=== PATIENT | female | born 1970 | race Caucasian/White ===

== ENCOUNTER 2023-06-15 10:50 | Emergency (ER) | payer BC, SELFPAY ==
[2023-06-15 11:01] VITALS: BP 133/76
--- NOTE | 2023-06-15 12:02 | ED.GENMED ---
History of Present Illness
<KENYON Fay - Last Filed: 06/15/23 16:13>
General
Chief Complaint: Back Pain
Source: patient
Exam Limitations: none
Time Seen by Provider: 06/15/23 11:35
Nursing documentation reviewed up to this point in time: agreed with
Travel History
Have you had any contact with someone who has COVID-19?: No
Do you have any symptoms of coronavirus? Fever > 100 degrees, chills, cough, shortness of breath, sore throat, loss of taste or smell, muscle aches, or headache?: No
History of Present Illness
History of Present Illness:
53-year-old female presents to the ER complaining of left back that radiates to her left chest she reports this started on Saturday however has gotten progressively worse. She slept on a different side and when she woke up noticed discomfort. She
reports pain has gotten worse since she first noticed this several days ago. She complains of increased pain with taking a deep breath. She denies any recent illness fever chills cough. She denies any rash. She has been taking ibuprofen also
took Flexeril at home which she believes may have without relief. She was seen in urgent care and sent here to rule out PE.
She has no prior history of DVT PE. There is no family history of clotting disorder. She is not a smoker. She is not on any oral contraceptives or estrogens. She denies any recent orthopedic issue, no recent travel. She does admit to a
sedentary job.
No cardiac disease
Review of Systems
<KENYON Fay - Last Filed: 06/15/23 16:13>
Review of Systems
Allergies reviewed?: Yes
All Other Systems: ROS reviewed and negative except as documented in HPI and ROS
Constitutional: Reports no symptoms; Denies fever, fatigue or chills
EENT: Reports no symptoms
Respiratory: Reports other (pain with deep breath )
Cardiac: Reports chest pain (left back pain radiates to left chest )
ABD/GI: Reports no symptoms
Musculoskeletal: Reports back pain (Left-sided back pain rating to chest)
Skin: Reports no symptoms
Neurological: Reports no symptoms
Psychiatric: Reports no symptoms
Phy Exam
<KENYON Fay - Last Filed: 06/15/23 16:13>
General Physical Exam
General Presentation: no apparent distress
General age: appears stated age
General Skin: warm and dry
General Habitus: normal
General Mental: alert
General Hydration: appears well hydrated
Cardiovascular Exam
Cardiovascular Exam: regular rate/rhythm, no murmur and normal peripheral pulses
Pulmonary Exam
Pulmonary Exam: lungs clear and no respiratory distress
Gastrointestinal Exam
Gastrointestinal Exam: normal bowel sounds, non tender and soft
Neurological Exam
Neurological Exam: alert and oriented x3
Musculoskeletal Exam
Musculoskeletal Exam: full ROM and other (Patient feels better when standing up laying back seems to worsen left back pain)
Skin Exam
Skin Exam: normal color and warm/dry
Psychiatric Exam
Psychiatric Exam: normal mood/affect
Course
<KENYON Fay - Last Filed: 06/15/23 16:13>
Orders/Labs/Results
Orders:
Orders
06/15/23 11:22
EKG [Electrocardiogram (*1)] Stat
Reason for Study: Chest Pain
06/15/23 11:23
EKG- Treatment ONCE
06/15/23 12:02
IV Insert/Care/Rem.- Treatment PRN
0.9% Sodium Chloride 1000 ml [Nss] 1,000 ml IV BOLUS
06/15/23 12:03
Cardiac Monitoring- Treatment ONCE
EKG- Treatment ONCE
Ketorolac [Toradol] 15 mg IV NOW STA
06/15/23 12:09
Complete Blood Count/With Diff Urgent
Comprehensive Metabolic Panel Urgent
D-Dimer Urgent
Troponin I Urgent
06/15/23 12:58
diazePAM [Valium Injection] 2 mg IV NOW STA
Abnormal Lab Results
06/15/23
12:09
MCH 32.4 H pg
(27.0-31.0)
06/15/23 12:09
06/15/23 12:09
Vital Signs
Initial and Last Documented VS:
Initial Vital Signs
Temp Pulse Resp BP Pulse Ox
98.8 F 78 18 133/76 95
06/15/23 11:01 06/15/23 11:01 06/15/23 11:01 06/15/23 11:01 06/15/23 11:01
Last Documented Vital Signs
Temp Pulse Resp BP Pulse Ox
98.8 F 74 20 117/76 99
06/15/23 11:01 06/15/23 15:36 06/15/23 15:36 06/15/23 15:36 06/15/23 15:36
Interlacer consulted with Physician
Interlacer consulted with physician?: Yes
Name of Physician Consulted: Reginald
<Enoch Montelongo MD - Last Filed: 06/15/23 18:32>
Orders/Labs/Results
Orders:
Orders
06/15/23 11:22
EKG [Electrocardiogram (*1)] Stat
Reason for Study: Chest Pain
06/15/23 11:23
EKG- Treatment ONCE
06/15/23 12:02
IV Insert/Care/Rem.- Treatment PRN
0.9% Sodium Chloride 1000 ml [Nss] 1,000 ml IV BOLUS
06/15/23 12:03
Cardiac Monitoring- Treatment ONCE
EKG- Treatment ONCE
Ketorolac [Toradol] 15 mg IV NOW STA
06/15/23 12:09
Complete Blood Count/With Diff Urgent
Comprehensive Metabolic Panel Urgent
D-Dimer Urgent
Troponin I Urgent
06/15/23 12:58
diazePAM [Valium Injection] 2 mg IV NOW STA
Abnormal Lab Results
06/15/23
12:09
MCH 32.4 H pg
(27.0-31.0)
06/15/23 12:09
06/15/23 12:09
Vital Signs
Initial and Last Documented VS:
Initial Vital Signs
Temp Pulse Resp BP Pulse Ox
98.8 F 78 18 133/76 95
06/15/23 11:01 06/15/23 11:01 06/15/23 11:01 06/15/23 11:01 06/15/23 11:01
Last Documented Vital Signs
Temp Pulse Resp BP Pulse Ox
98.8 F 74 20 117/76 99
06/15/23 11:01 06/15/23 15:36 06/15/23 15:36 06/15/23 15:36 06/15/23 15:36
<KENYON Fay - Last Filed: 06/15/23 16:13>
MDM/Problems Addressed
Differential Diagnosis Includes:
Not limited to muscular pain pleurisy pulmonary embolism less likely ACS, endocarditis
MDM/Problems Addressed:
Patient is a 53-year-old female who presents to the ER with complaints of left-sided back pain that radiates to her chest. She first noticed it several days ago after waking up. She did at that time sleep on
She normally does not sleep on. She was seen urgent care and sent to the ER for evaluation to rule out PE. She complains of pain with taking a deep breath. She has no DVT PE risk factors no cardiac disease. She presents here awake alert no acute
distress lungs are clear nontachypneic nonhypoxic no acute distress. D-dimer negative. Troponin negative. No acute findings on EKG. Patient was given Toradol and Valium here with improved symptoms. Patient was eval by ED physician with negative
D-dimer normal vital signs with no tachypnea no tachycardia no hypoxia less likely PE.
pericarditis considered normal troponin. Will DC with ibuprofen twice a day as discussed ED physician with Valium close the patient follow-up
<KENYON Fay - Last Filed: 06/15/23 16:13>
*Radiology
Radiology exam reviewed: radiology read reviewed (pt had nml chest in urgent care )
*Critical Care Note
Total Time (30-74mins, 75-104mins- exclusive of procedures): Not Applicable
ED Attending Note
<KEYNON Fay - Last Filed: 06/15/23 16:13>
-
Portions of this chart may have been created with voice recognition software.� Occasional wrong word or��sound alike� substitutions may have occurred due to the inherent limitations of voice recognition software.
<Enoch Montelongo MD - Last Filed: 06/15/23 18:32>
ED Attending Note
Patient seen and examined by attending physician: Yes
ED Attending Note:
Patient presents to ED secondary to persistent left-sided chest pain over the past 4 days. Chest pain described as sharp, worse when laying down, with movement, or inspiration, partially relieved when sitting up or leaning forward. Denies fever or
chills. Denies coughing. Denies direct trauma. Denies recent change in level activities. Denies leg pain or swelling. Denies recent travel or surgery. Of note, patient has had ongoing increased nasal congestion and mucus production, for which
she has been seeing ENT physician. In addition, there has been number of family members recently with cold symptoms. Denies nausea or vomiting. Denies neck pain. Denies fever.
Physical Exam
General: mild painful distress, not acutely ill. afebrile
Head: nc/at. eomi
Neck: supple. normal range of motion. normal posterior pharynx
Heart: s1/s2 regular rate and rhythm, no murmur. equal radial pulses.
Lungs: no acute respiratory distress. clear bilaterally. mild tenderness to palpation over left sided rib#5-6, along midaxillary line, without ecchymosis/swelling/erythema.
Abdomen: normal bowel sounds. not tender.
Neuro: alert and oriented. no focal neurological deficits
Skin: no rash
Psychiatric: well kept. interactive and cooperative
Extremities: no edema. no calf tenderness. negative homans.
Patient with an unremarkable workup in ED, including D-dimer. Patient reports moderate improvement symptoms after treatment. Patient's symptoms likely musculoskeletal in etiology versus pericarditis versus pleurisy. Otherwise, patient is
afebrile, hemodynamically stable, and appears comfortable at time of discharge. Recommended NSAIDs twice daily with meals over the next 7 days, along with PCP follow-up as an outpatient. Advised to return to ED with worsening symptoms.
Discharge Plan
Departure
Patient Disposition: Home (Routine Discharge)
Date of Disposition: 06/15/23
Time of Disposition: 16:02
Patient with high blood pressure during this ER visit?: Yes
Condition: Fair
Covid-19: Not Applicable
Discharge Problem:
Back pain
Instructions: Back Pain, BLOOD PRESSURE
Prescriptions:
New
diazepam [Valium] 5 mg tablet
5 mg PO TID PRN (Reason: muscle spasm) Qty: 10 0RF
Referrals:
Artis Lima DO [Family Provider] -
Activity Restrictions/Additional Instructions:
Ibuprofen 600 mg twice a day. A prescription for Valium was sent to pharmacy take as directed as a muscle relaxer. This medication can be taken up to every 8 hours if needed. This medication will cause drowsiness. No driving or drinking alcohol
while taking this medication.
Warm moist heat to affected area several times a day.
Follow-up with family doctor return if any worsening of symptoms if increasing pain shortness of breath or any further concerns
Interventions
Interventions:
*Risk Screen - Suicide Last Done: 06/15/23 15:35
*General Assessment Last Done: 06/15/23 11:01
*Neglect/Abuse Screening Last Done: 06/15/23 15:35
ED- Fall Risk Assessment Last Done: 06/15/23 15:35
*ED COVID-19 Vaccine History Last Done: 06/15/23 11:01
*Nursing Disposition Last Done: 06/15/23 16:14
ED-Musculoskeletal Assessment Last Done: 06/15/23 15:35
Discharge Date and Time
Discharge Date/Time: 06/15/23 16:19
[2023-06-15] MEDS: TORADOL 15 MG IV (12:10)
[2023-06-15] MEDS: NSS 1000 IV (12:11)
[2023-06-15 12:26] LABS: % Basophils 0.6 % (0-2); % Eosinophils 0.8 % (0-6); % Immature Granulocytes 0.3 % (0-0.5); % Lymphocytes 24.8 % (20.5-51.1); % Monocytes 4.5 % (1.7-9.3); Absolute Eosinophils 0.1 10^3/uL (0-0.7); Absolute Lymphocytes 1.6 10^3/uL (1.2-3.4); Absolute Monocytes 0.3 10^3/uL (0.1-0.6); Absolute Neutrophils 4.4 10^3/uL (1.4-6.5); Hematocrit 40.8 % (37.0-47.0); Hemoglobin 14.3 g/dL (12.0-16.0); Mean Corpuscular Hgb 32.4 pg (27.0-31.0); Mean Corpuscular Volume 92.5 fL (81.0-99.0); Mean Platelet Volume 10.1 fL (7.4-10.4); Nucleated Red Blood Cells % 0 %; Platelet Count 256 10^3/uL (130-400); Red Blood Cell Count 4.41 10^6/uL (4.20-5.40); Red Cell Dist. Width 12.1 % (11.5-14.5); White Blood Cell Count 6.4 10^3/uL (4.8-10.8)
[2023-06-15 12:43] LABS: D-Dimer < 0.27 ug/mlFEU (0.00-0.50)
[2023-06-15 12:44] LABS: ALT (SGPT) 19 U/L (0-35); AST (SGOT) 22 U/L (14-36); Albumin 4.4 g/dl (3.5-5.0); Alkaline Phosphatase 70 U/L (38-126); Blood Urea Nitrogen 13 mg/dl (7-17); Calcium 9.3 mg/dl (8.4-10.2); Carbon Dioxide 27 mmol/L (22-30); Chloride 107 mmol/L (98-107); Glucose 94 mg/dl (70-99); Potassium 4.2 mmol/L (3.5-5.1); Sodium 135 mmol/L (135-145); Total Bilirubin 0.7 mg/dl (0.2-1.3); eGFR > 60.00
[2023-06-15 12:50] LABS: Troponin I < 0.012 ng/ml
[2023-06-15] MEDS: VALIUM INJECTION 2 MG IV (13:15)
[2023-06-15 15:36] VITALS: BP 117/76
== END 2023-06-15 16:19 | disposition home or self-care (01) ==
LOC: EMR 10:50
PROVIDERS: Nurse Practitioner; EMERGENCY PHYSICIAN Emergency Medicine; FAMILY PHYSICIAN Family Medicine
DX: M54.9 Dorsalgia, unspecified (principal); R03.0 Elevated blood-pressure reading, without diagnosis of hypertension
CPT/HCPCS: 99284; 96374; 96375; 96361; 80053; 84484; 85025; 85379; 93005